=== PATIENT | male | born 1970 | race Caucasian/White ===

== ENCOUNTER → 2016-09-29 | Outpatient (CLI) | payer OTHER ==
[~2016-09-29] MED LIST: ASPIRIN325 PO; ATORVASTATIN CA40 MG PO; DEXILANT60 MG PO; FLEXERIL PO; LISINOPRIL10 MG PO; METFORMIN HCL1000 MG PO; NOVOLOG MI100 UNIT/M SC; NOVOLOG100 UNIT/1 SUBQ; PLAVIX 75 MG TA75 M1 PO; TOPROL XL25 MG PO; TOPROL XL50 MG PO; TRESIBA FL100 UNIT/1 SUBQ; TRULICITY0.75 MG/0. SUBQ; ZETIA10 MG PO
--- NOTE | ~2016-09-29 | S ---
[facility] [address] [place] [address] SURGICAL PATH RPT PROCEDURE Name: KATHY LONG Room #: REG ESTELA [place]#: [id number] Admission: 09/29/16 Date of : 66 Discharge: Report #: [id number] Path Case #: [id number] PATHOLOGY REPORT DRAFT COLLECTION DATE: 09/29/2016 RECEIVED DATE: 09/30/2016 SPECIMEN(S) RECEIVED: A.Random bx for reoccurring dysphasia - esophagus B.Cecal polyp
--- NOTE | ~2016-09-29 | P ---
[facility] [place] [address] PROCEDURE REPORT Name: KATHY LONG Room #: REG [facility]#: [id number] Admission: 09/29/16 Attend Phys: Segundo Arreguin MD Discharge: Date of : 66 Report #: [id number] THIS REPORT FOR: //name// CC: Segundo Barr BRIEF HISTORY: The patient is a 46-year-old male who recently was found to have Hemoccult-positive stools. He has some reflux symptoms, takes Dexilant on a daily basis. However, he has a history of dysphagia and was dilated several years ago and had recurrent solid food dysphagia from meat and bread. He reports he had only short remission of symptoms following his previous dilation. PREOPERATIVE DIAGNOSES: 1. Hemoccult-positive stools. 2. Recurrent solid food dysphagia. POSTOPERATIVE DIAGNOSES: 1. Diffuse gastritis. 2. Dysphagia. 3. Questionable subtle findings raising possibility of eosinophilic esophagitis. MEDICATIONS: Deep sedation with propofol per anesthesia. SPECIMEN: Random biopsies of esophagus. ESTIMATED BLOOD LOSS: 3 mL. PROCEDURE: EGD with biopsy and Givens dilation. FINDINGS: Prior to propofol sedation, procedure of upper endoscopy discussed with the patient as well potential risks and its complications. He indicates he understands and desires to proceed. DESCRIPTION OF PROCEDURE: With the patient in left lateral decubitus position, the [employer] video endoscope was inserted in the cervical esophagus under direct vision without difficulty. Examination of this organ through its entire length revealed intact esophageal mucosa; however, intermittently furrows were seen and also intermittently, a subtle slight rings were seen scattered about the esophagus. A stricture, mass lesion or typical Schatzki ring were not seen in the distal esophagus. Findings raised the question of eosinophilic esophagitis and multiple biopsies were obtained. Scope was advanced into the stomach, was examined on end view as well as retroflexed views. The patient has a known history of gastritis and previous biopsies were negative for H. pylori. It was noted again to have a diffuse gastritis, biopsies were not repeated today. Upon retroflexion, no mass lesions were seen in the proximal stomach. No bleeding [facility] [address] [place] [address] PROCEDURE REPORT Name: KATHY LONG Room #: REG [facility]#: [id number] Admission: 09/29/16 Attend Phys: Segundo Arreguin MD Discharge: Date of : 66 Report #: [id number] lesions were seen with regards to his Hemoccult-positive stools. The pylorus, duodenal bulb and postbulbar sweep down into the third portion were inspected and noted to be unremarkable. At that point, the scope was slowly withdrawn and careful circumferential views confirmed the above findings. The patient tolerated the procedure well. Subsequently, he was dilated with ____ 50-[place] Givens dilator. Upon passage of dilator, the scope was reintroduced and significant mucosal tearing was not seen. The patient tolerated the procedure well. CONDITION OF THE PATIENT UPON DISCHARGE: Following procedure, the patient drowsy and prepared for colonoscopy. INSTRUCTIONS TO THE PATIENT AND FAMILY AT THE TIME OF DISCHARGE: Interestingly, the patient was on Dexilant and reports solid food dysphagia. We will follow up on biopsies obtained today to evaluate for eosinophilic esophagitis. Since he is on a PPI, if he does have significant eosinophilic esophagitis, he may require use of budesonide for management of his eosinophilic esophagitis. At this time, we will proceed with colonoscopy for evaluation of his Hemoccult-positive stools. <ELECTRONICALLY SIGNED> By: Segundo Arreguin MD 09/30/16 1523 1204 [id number] Segundo Arreguin MD /nt
--- NOTE | ~2016-09-29 | P ---
[facility] [place] [address] PROCEDURE REPORT Name: KATHY LONG Room #: REG [facility]#: [id number] Admission: 09/29/16 Attend Phys: Segundo Arreguin MD Discharge: Date of : 66 Report #: [id number] THIS REPORT FOR: //name// CC: Segundo Barr MD BRIEF HISTORY: The patient is a 46-year-old male with recent findings of Hemoccult positive stools. PREOPERATIVE DIAGNOSIS: Hemoccult positive stools. POSTOPERATIVE DIAGNOSES: 1. Flat polyp, cecum. 2. Small internal hemorrhoids. MEDICATIONS: Deep sedation with propofol per anesthesia. SPECIMEN: Cecal polyp. ESTIMATED BLOOD LOSS: 3 mL. PROCEDURE: Colonoscopy to cecum and terminal ileum with snare polypectomy. FINDINGS: Prior to propofol sedation, procedure of colonoscopy discussed with the patient as well as potential risks, benefits, and complications. He indicates he understands and desires to proceed. With the patient in left lateral decubitus position, digital examination was completed, which revealed no abnormalities. Subsequently, the [employer] video colonoscope was introduced into the rectum, advanced under direct vision to the cecum. Done with minimal difficulty. The cecum was identified by the ileocecal valve and the appendiceal orifice. I was able to visualize the distal segment of terminal ileum, which was inspected and noted to be unremarkable. At that point, the scope was slowly withdrawn and careful circumferential views obtained including retroflexing the scope in the ascending colon. As we withdrew the scope, there were some limitations of prep and we had to suction aspirate some liquidy material scattered about the colon. However, after irrigating and suctioning, a reasonably good view was obtained of the colonic mucosa. As the scope was withdrawn, a 5-mm flat polyp was seen in the cecum that was removed by cold snare polypectomy. Scope was further withdrawn and no additional polypoid lesions were seen. He also had a diffusely dilated colon suggesting the possibility of chronic constipation. As we withdrew the scope, he had a dilated colon, but no other mucosal abnormalities were seen. No bleeding lesions were seen. No additional polyps were seen. No vascular ectasias were seen. Scope was withdrawn in the rectum. Upon retroflexion, small hemorrhoids were seen. Bleeding was not noted. No other lesions were seen. Scope was withdrawn. The [address] [address] PROCEDURE REPORT Name: KATHY LONG JR Room #: REG [facility] [id number] Admission: 09/29/16 Attend Phys: Segundo Arreguin MD Discharge: Date of : 66 Report #: [id number] patient tolerated the procedure well. CONDITION OF THE PATIENT UPON DISCHARGE: Following procedure, the patient drowsy and will be discharged home when fully ambulatory. INSTRUCTIONS TO THE PATIENT AND FAMILY AT THE TIME OF DISCHARGE: The patient had Hemoccult positive stools, finding as noted above. We will follow up on the path report. If the polyp is an adenoma, he should return in 5 years, if not 10 years would be indicated. As far as his Hemoccult positive stools, that may be coming from the hemorrhoids. See upper endoscopy report as well. He will return to care of Dr. Meghan Barr and return to see me as needed. Withdrawal time from the cecum was 15 minutes. <ELECTRONICALLY SIGNED> By: Segundo Arreguin MD 09/30/16 1523 1240 1403 Segundo Arreguin MD /nt
== END | disposition home or self-care (01) ==
LOC: GI 08:42
DX: D12.0 Benign neoplasm of cecum (principal); K29.70 Gastritis, unspecified, without bleeding; K64.8 Other hemorrhoids; R13.19 Other dysphagia; Z88.8 Allergy status to other drugs, medicaments and biological substances; Z79.82 Long term (current) use of aspirin; Z79.899 Other long term (current) drug therapy
CPT/HCPCS: 62110

== ENCOUNTER → 2020-05-29 | Outpatient (CLI) | payer OTHER | LOC: SJCVCIMAG 08:04 | PROVIDERS: ATTEND Internal Medicine | DX: I49.3 Ventricular premature depolarization (principal); R00.0 Tachycardia, unspecified; R06.00 Dyspnea, unspecified; R53.83 Other fatigue; I65.23 Occlusion and stenosis of bilateral carotid arteries; I25.5 Ischemic cardiomyopathy; I25.10 Atherosclerotic heart disease of native coronary artery without angina pectoris; E78.5 Hyperlipidemia, unspecified; I10 Essential (primary) hypertension; E11.9 Type 2 diabetes mellitus without complications; Z87.891 Personal history of nicotine dependence; Z79.82 Long term (current) use of aspirin; Z98.61 Coronary angioplasty status; Z88.1 Allergy status to other antibiotic agents ==